=== PATIENT | male | born 1965 | race Caucasian/White ===

== ENCOUNTER 2022-05-06 12:52 | Inpatient (IN) | payer OTHER, BC ==
[~2022-05-06] VITALS: Ht 195.6 cm; Wt 120.2 kg
[2022-05-06 13:02] VITALS: BP_SYST 137
--- NOTE | 2022-05-06 13:10 | NUR ---
Patient to ER bed 02 to gown for evaluation. Side rails up.
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
--- NOTE | 2022-05-06 13:28 | NUR ---
Radiology accompanied patient to have xrays done at this time.
--- NOTE | 2022-05-06 13:40 | NUR ---
ELENA HENNING Kwaw at bedside.
[2022-05-06] MEDS ORDERED: MORPHINE 4 MG INJ. 4 MG/ML VIAL IVP ONE (13:45)
[2022-05-06] MEDS ORDERED: KETOROLAC TROMETHAMINE 30 MG VIAL IVP ONE (13:45)
--- NOTE | 2022-05-06 13:58 | NUR ---
Lab at bedside.
--- NOTE | 2022-05-06 14:06 | NUR ---
Covid swab done and sent to lab
[2022-05-06 14:25] LABS: BASOPHILS # (AUTO) 0.1 K/uL (0.0-0.2); BASOPHILS % (AUTO) 0.4 % (0.0-2.0); EOSINOPHILS # (AUTO) 0.2 K/uL (0.0-0.4); EOSINOPHILS % (AUTO) 1.7 % (0.0-4.0); HEMATOCRIT 38.2 % (36-54); HEMOGLOBIN 13.7 g/dL (14.0-18.0); LYMPHOCYTES # (AUTO) 1.5 K/uL (1.0-5.5); MEAN CORPUSCULAR HEMOGLOBIN 31 pg (27-31); MEAN CORPUSCULAR HGB CONC 36 % (32-36); MEAN CORPUSCULAR VOLUME 87 fL (79.0-98.0); MONOCYTES # (AUTO) 1.6 K/uL (0.0-1.0); NEUTROPHILS # (AUTO) 8.6 K/uL (1.8-7.7); NEUTROPHILS % (AUTO) 71.9 % (40.0-70.0); PLATELET COUNT (AUTO) 290 K/uL (130-430); RED BLOOD CELL COUNT(AUTO) 4.37 MIL/uL (4.2-6.2); WHITE BLOOD COUNT (AUTO) 11.9 K/uL (4.8-10.8)
[2022-05-06] MEDS ORDERED: cefTRIAXone 1 GM IVPB PREMIX 50 ML IV ONE (14:30)
[2022-05-06 14:38] LABS: CALCIUM 9.8 mg/dL (8.4-11.0); CREATININE 0.96 mg/dL (0.55-1.30); POTASSIUM 3.6 mmol/L (3.5-5.1)
[2022-05-06 14:44] LABS: ALBUMIN 4.1 g/dL (3.4-4.8); TOTAL BILIRUBIN 3.1 mg/dL (0.0-1.0)
--- NOTE | 2022-05-06 14:45 | NUR ---
Admit bed requested Patient will be admitted to care of . Admitted to tele unit. Diagnosis pneumothorax Inpatient (Yes or No) Yes Observation (Yes or No) no Orientation concerns or request close to nursing station (Yes or No) No Covid Status No On vent or bipap No Isolation requirements No Needs a sitter No From Home (Yes or if No enter name of facility) Home Requires Dialysis (Yes or No) NO Med Rec Completed (Yes of No) yes
[2022-05-06] MEDS ORDERED: LORazepam 2 MG/ML VIAL IVP PRN (15:15)
[2022-05-06] MEDS ORDERED: ACETAMINOPHEN 325 MG TABLET PO PRN (15:15)
[2022-05-06] MEDS ORDERED: ONDANSETRON HCL 4 MG/2 ML VIAL IVP PRN (15:15)
[2022-05-06] MEDS ORDERED: ALBUTEROL SULFATE 0.083% 2.5 MG/3 ML VIAL.NEB INH PRN (15:15)
[2022-05-06] MEDS ORDERED: NALOXONE HCL 0.4 MG/ML AMP (NARCAN) IVP PRN ×2 (15:15)
[2022-05-06] MEDS ORDERED: HYDROcodone/ACETAMIN 5-325 MG TAB (NORCO/ VICODIN) PO PRN (15:15)
[2022-05-06] MEDS ORDERED: IPRATROPIUM BROM 0.5 MG/2.5 ML VIAL.NEB (ATROVENT) INH PRN (15:15)
--- NOTE | 2022-05-06 16:15 | NUR ---
Patient transferred to tele room 134B. Report given to Dayan LEDEZMA; assumed care at this time.
--- NOTE | 2022-05-06 16:30 | NUR ---
ADMISSION NOTES, RECEIVED PT FROM E.R. , PT CAME IN FROM DOCTORS OFFICE. PT WAS DIAGNOSED WITH LEFT PNEUMOTHORAX AND PNEUMONIA. PT IS UNDER THE CARE OF DR. Elham STRAUSS. PT EDUCATED ON THE USE OF CALL LIGHT, TV AND BED CONTROLS. ENCOURAGED TO CALL FOR ASSIST, PAIN MEDS OR ANY CONCERNS. FAMILY IS AT BEDSIDE.
--- NOTE | 2022-05-06 16:35 | NUR ---
FIXED LEAKING IV ACCESS INSERTED BY IN E.R.
[2022-05-06 17:18] VITALS: BP_SYST 146
[2022-05-06 17:21] VITALS: BP_SYST 146
[2022-05-06] MEDS: cefTRIAXone 1 GM IVPB PREMIX 50 ML IV SCH (17:30)
[2022-05-06] MEDS: BALSAM PERU/CASTOR OIL 56.7 GM OINT...G. TP SCH (17:30)
[2022-05-06] MEDS: AZITHROMYCIN 500 MG in NS 250 ML IV SCH (17:31)
--- NOTE | 2022-05-06 18:16 | NUR ---
report was endorsed by admission nurse. patient shows no signs of any distress, breathing is equal and non labored all safety precautions in place. 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 no other needs at this time.
--- NOTE | 2022-05-06 18:38 | NUR ---
RN CLOSING NOTE PATIENT ATE ALL HIS DINNER, NO COMPLAINTS AT THIS TIME. CALL LIGHT IS WITH HIM. NO SIGNS OF ANY DISTRESS. PATIENT'S ANTIBIOTICS GIVEN IN ER. PATIENT HAS ALL SAFETY PRECAUTIONS IN PLACE.
[2022-05-06] MEDS ORDERED: NORMAL SALINE 5 ML DISP.SYRIN IVF SCH (22:00)
[2022-05-06] MEDS: HYDROcodone/ACETAMIN 10-325 MG TAB PO PRN (22:05)
[2022-05-06] MEDS: NORMAL SALINE 5 ML DISP.SYRIN IVF SCH (22:15)
[2022-05-07] MEDS: HYDROcodone/ACETAMIN 10-325 MG TAB PO PRN ×3 (03:17→21:31)
[2022-05-07] MEDS: NORMAL SALINE 5 ML DISP.SYRIN IVF SCH ×3 (07:22→21:34)
[2022-05-07] MEDS: BALSAM PERU/CASTOR OIL 56.7 GM OINT...G. TP SCH (09:53)
[2022-05-07 10:41] LABS: C-REACTIVE PROTEIN QUANT 11.1 mg/dL (0-0.5); CALCIUM 8.7 mg/dL (8.4-11.0); CREATININE 0.81 mg/dL (0.55-1.30); PHOSPHORUS 3.6 mg/dL (2.7-4.5); POTASSIUM 3.4 mmol/L (3.5-5.1)
[2022-05-07] MEDS ORDERED: POTASSIUM CHLORIDE 20 MEQ TAB.PRT.SR PO ONE (12:30)
[2022-05-07] MEDS ORDERED: DOCUSATE SODIUM 100 MG CAPSULE PO ONE (12:45)
[2022-05-07] MEDS ORDERED: IBUPROFEN 600 MG TABLET PO ONE (13:00)
--- NOTE | 2022-05-07 13:35 | NUR ---
CONSULT GI TRANSAMINITIS DR GRAFF [phone] S/W CLACHRISTYSA EXCHANGE
[2022-05-07 14:28] LABS: BASOPHILS % (AUTO) 0.4 % (0.0-2.0); EOSINOPHILS # (AUTO) 0.3 K/uL (0.0-0.4); EOSINOPHILS % (AUTO) 2.7 % (0.0-4.0); HEMATOCRIT 34.7 % (36-54); HEMOGLOBIN 12.4 g/dL (14.0-18.0); LYMPHOCYTES # (AUTO) 1.4 K/uL (1.0-5.5); LYMPHOCYTES % (AUTO) 13.8 % (20.5-51.5); MEAN CORPUSCULAR HEMOGLOBIN 31 pg (27-31); MEAN CORPUSCULAR HGB CONC 36 % (32-36); MEAN CORPUSCULAR VOLUME 88 fL (79.0-98.0); MONOCYTES # (AUTO) 1.3 K/uL (0.0-1.0); MONOCYTES % (AUTO) 12.7 % (1.7-9.3); NEUTROPHILS # (AUTO) 7.3 K/uL (1.8-7.7); NEUTROPHILS % (AUTO) 70.4 % (40.0-70.0); PLATELET COUNT (AUTO) 276 K/uL (130-430); RED BLOOD CELL COUNT(AUTO) 3.96 MIL/uL (4.2-6.2); RED CELL DISTRIBUTION WIDTH 14.1 % (9.0-15.0); WHITE BLOOD COUNT (AUTO) 10.3 K/uL (4.8-10.8)
[2022-05-07] MEDS: AZITHROMYCIN 500 MG in NS 250 ML IV SCH (16:11)
[2022-05-07 16:16] LABS: ERYTHROCYTE SEDIMENTATION RATE 31 MM/HR (0-15)
[2022-05-07] MEDS: cefTRIAXone 1 GM IVPB PREMIX 50 ML IV SCH (17:00)
[2022-05-07] MEDS: IBUPROFEN 600 MG TABLET PO SCH (18:00)
--- NOTE | 2022-05-07 19:15 | NUR ---
OPENING NOTE REPORT RECEIVED FROM DAYSHIFT NURSE. PATIENT RECEIVED LYING IN BED, AWAKE, ALERT, DENIES PAIN AT THIS TIME. BREATHING EVEN AND UNLABORED. IV SITE IS PATENT, NO SIGNS OF INFILTRATION OR INFECTION NOTED. CALL LIGHT WITH PATIENT, DEMONSTRATED BACK PROPER USE. BED IS LOCKED AND AT LOWEST POSITION. WILL CONTINUE TO MONITOR.
[2022-05-07 20:00] VITALS: BP_SYST 123
[2022-05-07] MEDS: DOCUSATE SODIUM 100 MG CAPSULE PO SCH (21:31)
[2022-05-08 00:17] VITALS: BP_SYST 119
[2022-05-08] MEDS: HYDROcodone/ACETAMIN 10-325 MG TAB PO PRN ×3 (05:16→20:51)
[2022-05-08] MEDS: NORMAL SALINE 5 ML DISP.SYRIN IVF SCH ×3 (05:45→21:53)
--- NOTE | 2022-05-08 06:13 | NUR ---
CLOSING NOTE PATIENT IN BED, RESTING, NO S/S OF ACUTE DISTRESS. BREATHING EVEN AND UNLABORED. HOB RAISED. IV SITE IS PATENT, NO SIGNS OF INFILTRATION OR INFECTION NOTED. ALL NEEDS MET THROUGHOUT SHIFT. FALL, SAFETY PRECAUTIONS MAINTAINED THROUGHOUT SHIFT. WILL CONTINUE TO MONITOR UNTIL PATIENT CARE IS ENDORSED TO ONCOMING DAYSHIFT NURSE.
[2022-05-08 07:01] LABS: C-REACTIVE PROTEIN QUANT 10.6 mg/dL (0-0.5); CALCIUM 8.5 mg/dL (8.4-11.0); CREATININE 0.86 mg/dL (0.55-1.30); POTASSIUM 3.8 mmol/L (3.5-5.1)
[2022-05-08 08:00] VITALS: BP_SYST 121
[2022-05-08] MEDS: BALSAM PERU/CASTOR OIL 56.7 GM OINT...G. TP SCH (09:00)
[2022-05-08] MEDS: IBUPROFEN 600 MG TABLET PO SCH ×3 (09:14→18:00)
[2022-05-08 11:27] LABS: BASOPHILS # (AUTO) 0.1 K/uL (0.0-0.2); EOSINOPHILS # (AUTO) 0.5 K/uL (0.0-0.4); EOSINOPHILS % (AUTO) 5.4 % (0.0-4.0); HEMATOCRIT 33.1 % (36-54); LYMPHOCYTES # (AUTO) 2.2 K/uL (1.0-5.5); LYMPHOCYTES % (AUTO) 25.4 % (20.5-51.5); MEAN CORPUSCULAR HEMOGLOBIN 32 pg (27-31); MEAN CORPUSCULAR HGB CONC 36 % (32-36); MEAN CORPUSCULAR VOLUME 88 fL (79.0-98.0); MONOCYTES # (AUTO) 1.3 K/uL (0.0-1.0); MONOCYTES % (AUTO) 14.9 % (1.7-9.3); NEUTROPHILS # (AUTO) 4.7 K/uL (1.8-7.7); NEUTROPHILS % (AUTO) 53.3 % (40.0-70.0); PLATELET COUNT (AUTO) 300 K/uL (130-430); RED BLOOD CELL COUNT(AUTO) 3.76 MIL/uL (4.2-6.2)
[2022-05-08 12:57] LABS: WHITE BLOOD COUNT (AUTO) 8.8 K/uL (4.8-10.8)
[2022-05-08 13:36] LABS: ERYTHROCYTE SEDIMENTATION RATE 34 MM/HR (0-15)
[2022-05-08 16:00] VITALS: BP_SYST 129
[2022-05-08] MEDS: cefTRIAXone 1 GM IVPB PREMIX 50 ML IV SCH (16:02)
[2022-05-08] MEDS: AZITHROMYCIN 500 MG in NS 250 ML IV SCH (16:19)
[2022-05-08] MEDS: DOCUSATE SODIUM 100 MG CAPSULE PO SCH ×2 (16:19→20:51)
--- NOTE | 2022-05-08 18:55 | NUR ---
PATIENT HAS HAD AN UNEVENTFUL SHIFT. PT INSTRUCTED ON THE USE AND PERTINENCE OF THE INCENTIVE SPIROMETER. PT DEMONSTRATED AND VERBALIZED UNDERSTANDING. PT AMBULATED IN HALLWAY TODAY- GAIT STEADY AND PT TOLERATED WITHOUT INCREASED DYSPNEA. PT MEDICATED WITH PRN MEDS TO CONTROL PAIN. PT EXHIBITS NO S/S ACUTE DISTRESS AT THIS TIME.
[2022-05-08 20:47] VITALS: BP_SYST 151
[2022-05-09 05:23] VITALS: BP_SYST 146
[2022-05-09] MEDS: HYDROcodone/ACETAMIN 10-325 MG TAB PO PRN ×2 (05:26→12:51)
[2022-05-09] MEDS: NORMAL SALINE 5 ML DISP.SYRIN IVF SCH (05:26)
[2022-05-09 08:00] VITALS: BP_SYST 126
--- NOTE | 2022-05-09 08:00 | NUR ---
Mr Grossman has been assessed as indicated. He has been successfully treated for pain. He is hoping to go home today. At this time he is resting quietly while using the incentive spirometer.
[2022-05-09] MEDS: DOCUSATE SODIUM 100 MG CAPSULE PO SCH (09:17)
[2022-05-09] MEDS: IBUPROFEN 600 MG TABLET PO SCH ×2 (09:17→12:00)
[2022-05-09 09:26] LABS: ALBUMIN 2.7 g/dL (3.4-4.8); C-REACTIVE PROTEIN QUANT 7.6 mg/dL (0-0.5); CALCIUM 8.8 mg/dL (8.4-11.0); CREATININE 0.7 mg/dL (0.55-1.30); POTASSIUM 4.1 mmol/L (3.5-5.1)
[2022-05-09 10:17] VITALS: BP_SYST 146
[2022-05-09 11:30] VITALS: BP_SYST 140
[2022-05-09 11:42] LABS: BASOPHILS # (AUTO) 0.1 K/uL (0.0-0.2); BASOPHILS % (AUTO) 0.7 % (0.0-2.0); EOSINOPHILS # (AUTO) 0.4 K/uL (0.0-0.4); EOSINOPHILS % (AUTO) 4.2 % (0.0-4.0); HEMATOCRIT 34.1 % (36-54); HEMOGLOBIN 12.5 g/dL (14.0-18.0); LYMPHOCYTES # (AUTO) 1.8 K/uL (1.0-5.5); MEAN CORPUSCULAR HEMOGLOBIN 32 pg (27-31); MEAN CORPUSCULAR VOLUME 87 fL (79.0-98.0); MONOCYTES % (AUTO) 10.7 % (1.7-9.3); NEUTROPHILS # (AUTO) 6.2 K/uL (1.8-7.7); NEUTROPHILS % (AUTO) 65.4 % (40.0-70.0); PLATELET COUNT (AUTO) 337 K/uL (130-430); RED BLOOD CELL COUNT(AUTO) 3.94 MIL/uL (4.2-6.2); RED CELL DISTRIBUTION WIDTH 14.1 % (9.0-15.0); WHITE BLOOD COUNT (AUTO) 9.4 K/uL (4.8-10.8)
[2022-05-09 11:51] LABS: MEAN CORPUSCULAR HGB CONC 36 % (32-36)
[2022-05-09] MEDS ORDERED: DOCU-144 PO (11:55)
[2022-05-09] MEDS ORDERED: LEVO-62 PO (11:55)
[2022-05-09] MEDS ORDERED: HYDR-3927 PO (11:55)
[2022-05-09] MEDS ORDERED: IBUP-1969 PO (11:55)
[2022-05-09 12:38] LABS: ERYTHROCYTE SEDIMENTATION RATE 50 MM/HR (0-15)
[2022-05-09 13:06] VITALS: BP_SYST 126
--- NOTE | 2022-05-09 14:00 | NUR ---
Mr Tian has been DC to home. IV access has been removed. DC instructions have prashant reviewed with home. He expresses that he understood. RX are at or pharmacy. He was escorted to the door via . He was driven home by his in a private vehicle.
[2022-05-09 16:42] VITALS: BP_SYST 135
[2022-05-10 06:06] LABS: HEPATITIS A AB, IgM Negative (Negative); HEPATITIS B CORE AB, IgM Negative (Negative); HEPATITIS B SURFACE AG Negative (Negative)
== END 2022-05-09 17:56 | disposition home health service (06) | DRG 193 ==
LOC: SED 12:52 → STU 14:36 → SMU 05-07 12:53
PROVIDERS: ADMIT Preventive Medicine Preventive Medicine/Occupational Environmental Medicine; ATTEND Preventive Medicine Preventive Medicine/Occupational Environmental Medicine
PROC: 05HY33Z Insertion of Infusion Device into Upper Vein, Percutaneous Approach (ICD-10-PCS; principal; 2022-05-06)
PROC: B54MZZA Ultrasonography of Right Upper Extremity Veins, Guidance (ICD-10-PCS; 2022-05-06)
DX: J18.9 Pneumonia, unspecified organism (principal); E43 Unspecified severe protein-calorie malnutrition; S22.42XA Multiple fractures of ribs, left side, initial encounter for closed fracture; R07.89 Other chest pain; R73.9 Hyperglycemia, unspecified; R74.01 Elevation of levels of liver transaminase levels; K76.0 Fatty (change of) liver, not elsewhere classified; F10.10 Alcohol abuse, uncomplicated; Z20.822 Contact with and (suspected) exposure to COVID-19; Z90.49 Acquired absence of other specified parts of digestive tract; V28.4XXA Motorcycle driver injured in noncollision transport accident in traffic accident, initial encounter; Y93.89 Activity, other specified; Y92.89 Other specified places as the place of occurrence of the external cause; Y99.8 Other external cause status; Z79.899 Other long term (current) drug therapy; Z68.31 Body mass index [BMI] 31.0-31.9, adult
CPT/HCPCS: 36415; 71045; 71250-TC; 76376; 76700-TC; 80048; 80053; 80074; 82962; 83735; 84100; 85025; 85651-TC; 86140; 87040; 93005; 96374; 96375; 99285; G0378; J0456; J0696; J1885; J2270; J2405; J7050